=== PATIENT | female | born 1980 | race Caucasian/White ===

== ENCOUNTER → 2019-04-13 | Outpatient (CLI) | payer OTHER ==
[2019-04-13 08:56] LABS: BASOPHIL % 0.3 % (0-2); PLATELET COUNT 310 x10^3mcL (130-400)
[2019-04-13 08:58] LABS: RED CELL DISTRIBUTION WIDTH 15.9 % (11.5-14.5)
[2019-04-13 09:03] LABS: rbc morphology (normal/abnorm) ABNORMAL (NORMAL)
[2019-04-13 09:48] LABS: ALBUMIN 3.8 g/dL (3.4-5.0); ALKALINE PHOSPHATASE 92 U/L (46-116); ALT/SGPT 24 U/L (14-59); AST/SGOT 9 U/L (15-37); BILIRUBIN TOTAL 0.37 mg/dL (0.20-1.00); CALCIUM 9.6 mg/dL (8.5-10.1); CARBON DIOXIDE 24.3 mmol/L (21-32); CHLORIDE SERUM 105 mmol/L (98-107); CREATININE SERUM 0.8 mg/dL (0.6-1.0); GFR1 > 60 mL/min; GLUCOSE SERUM 109 mg/dL (74-106); HDL CHOLESTEROL 59 mg/dL (40-60); SODIUM SERUM 140 mmol/L (136-145); TRIGLYCERIDES 115 mg/dL (<150)
[2019-04-13 09:49] LABS: CHOLESTEROL 205 mg/dL (<200); CHOLESTEROL/HDL RATIO 3.5
== END | disposition home or self-care (01) ==
LOC: LB 08:26
DX: E03.9 Hypothyroidism, unspecified (principal); G43.019 Migraine without aura, intractable, without status migrainosus

== ENCOUNTER 2019-06-28 19:27 | Emergency (ER) | payer OTHER ==
[~2019-06-28] VITALS: Ht 162.6 cm; Wt 88.6 kg
[2019-06-28 19:54] VITALS: Ht 162.6 cm; Wt 88.6 kg
[2019-06-28 21:06] LABS: microscopic required? NO
[2019-06-28 21:24] LABS: UA SPECIFIC GRAVITY 1.015 (1.005-1.035); urine erythrocyte NEGATIVE (NEGATIVE)
[2019-06-28 21:26] LABS: BASOPHIL % 0.3 % (0-2); PLATELET COUNT 342 x10^3mcL (130-400)
[2019-06-28 21:28] LABS: RED CELL DISTRIBUTION WIDTH 17.8 % (11.5-14.5)
[2019-06-28 21:31] LABS: CALCIUM 9.2 mg/dL (8.5-10.1); CARBON DIOXIDE 23.8 mmol/L (21-32); CHLORIDE SERUM 103 mmol/L (98-107); CREATININE SERUM 0.9 mg/dL (0.6-1.0); GFR1 > 60 mL/min; GLUCOSE SERUM 92 mg/dL (74-106); POTASSIUM SERUM 3.7 mmol/L (3.5-5.1); SODIUM SERUM 140 mmol/L (136-145)
[2019-06-28 21:35] LABS: ALKALINE PHOSPHATASE 101 U/L (46-116); ALT/SGPT 27 U/L (14-59); AST/SGOT 19 U/L (15-37); BILIRUBIN TOTAL 0.23 mg/dL (0.20-1.00); LIPASE 190 IU/L (73-393); TOTAL PROTEIN, SERUM 8.1 g/dL (6.4-8.2)
[2019-06-28 23:27] VITALS: BP 123/66
== END 2019-06-28 23:27 | disposition home or self-care (01) ==
LOC: ED 19:27
PROVIDERS: Emergency Medicine
DX: K59.00 Constipation, unspecified (principal); F32.9 Major depressive disorder, single episode, unspecified; E03.9 Hypothyroidism, unspecified
CPT/HCPCS: 36415; Q0162

== ENCOUNTER → 2019-10-09 | Outpatient (CLI) | payer OTHER ==
[2019-10-09 10:48] LABS: ALKALINE PHOSPHATASE 105 U/L (46-116); ALT/SGPT 31 U/L (14-59); AST/SGOT 23 U/L (15-37); CARBON DIOXIDE 24.1 mmol/L (21-32); CHLORIDE SERUM 105 mmol/L (98-107); CREATININE SERUM 0.8 mg/dL (0.6-1.0); GFR1 > 60 mL/min; GLUCOSE SERUM 97 mg/dL (74-106); POTASSIUM SERUM 4.5 mmol/L (3.5-5.1); SODIUM SERUM 138 mmol/L (136-145); TOTAL PROTEIN, SERUM 8.3 g/dL (6.4-8.2)
[2019-10-09 11:37] LABS: BASOPHIL % 0.5 % (0-2); PLATELET COUNT 389 x10^3mcL (130-400)
[2019-10-09 11:38] LABS: RED CELL DISTRIBUTION WIDTH 19.5 % (11.5-14.5)
[2019-10-09 11:40] LABS: rbc morphology (normal/abnorm) ABNORMAL (NORMAL)
== END | disposition home or self-care (01) ==
LOC: LB 09:57
DX: E03.9 Hypothyroidism, unspecified (principal); D64.9 Anemia, unspecified

== ENCOUNTER 2019-12-12 06:47 | Emergency (ER) | payer OTHER ==
[~2019-12-12] VITALS: Ht 162.6 cm; Wt 84.4 kg
[2019-12-12 07:45] VITALS: BP 117/76; Ht 162.6 cm; Wt 84.4 kg
== END 2019-12-12 08:47 | disposition home or self-care (01) ==
LOC: ED 06:47
DX: J40 Bronchitis, not specified as acute or chronic (principal); G43.909 Migraine, unspecified, not intractable, without status migrainosus; E03.9 Hypothyroidism, unspecified
CPT/HCPCS: Q0092